=== PATIENT | female | born 1985 | race American Indian/Alaskan Native ===

== ENCOUNTER 2020-03-12 11:48 | Outpatient (CLI) | payer MEDICAID ==
[2020-03-12 12:13] VITALS: BP 105/65
[2020-03-12 12:57] LABS: Bacteria,Urine 1+ /HPF (Negative); Bilirubin,Urine NEG (Negative); Blood,Urine NEG (Negative); Color,Urine Yellow (Yellow); Mucus,Urine FEW /HPF; Protein,Urine <15 mg/dL mg/dL (Negative); RBC,Urine < 1.0 /HPF (0.0-6.0); Urobilinogen,Urine < 2.0 mg/dL (<2.0)
[2020-03-12 12:58] LABS: WBC,Urine < 1.0 /HPF (0.0-6.0)
[2020-03-12] MEDS ORDERED: LACTATED RINGERS 1,000 ML IV SCH (13:15)
[2020-03-12] MEDS ORDERED: MORPHINE 2 MG/1 ML INJ IV SCH (14:00)
[2020-03-12 14:50] LABS: Alanine Aminotransferase 12 units/L (7-56); Albumin 3.8 g/dL (3.9-5); Blood Urea Nitrogen 6 mg/dL (7-17); Calcium 9.6 mg/dL (8.4-10.2); Hemolysis Index 1
[2020-03-12 14:52] LABS: Mean Corpuscular HGB Conc 33 % (30-34); Mean Corpuscular Volume 84 fl (79-97); Platelet Count 265 K/mm3 (140-440); Red Blood Count 4.29 M/mm3 (3.65-5.03); Red Cell Distribution Width 14.9 % (13.2-15.2)
[2020-03-12 14:53] LABS: BUN/Creatinine Ratio 10
--- NOTE | 2020-03-12 17:54 | Ultrasound Report ---
US abdomen complete INDICATION: pain rt lower abd. COMPARISON: None. FINDINGS: Pancreas: Normal. Abdominal aorta: Normal. IVC: Normal. Liver: Normal. Gallbladder: There is a stone seen within the gallbladder neck. No gallbladder wall thickening or per icholecystic fluid. Bile ducts: Normal. The common bile duct measures 5 mm. Kidneys: Not well-visualized secondary to bowel gas. Spleen: Normal. There is no free fluid in the abdomen. IMPRESSION: Cholelithiasis without evidence of cholecystitis. Signer Name: Harrison Zhong MD Signed: 03/12/2020 5:49 PM Workstation Name: [id number]
== END 2020-03-12 18:23 | disposition home or self-care (01) ==
LOC: TRG 11:48 → APU 11:49 → TRG 18:23
PROVIDERS: ATTEND Obstetrics & Gynecology
DX: O26.893 Other specified pregnancy related conditions, third trimester (principal); R10.9 Unspecified abdominal pain; Z3A.28 28 weeks gestation of pregnancy
CPT/HCPCS: 36415; 59025; 76700; 80053; 81001; 85027; 96361; 96365; 96366; J2270; J7120; 96360